=== PATIENT | male | born 1955 | race Caucasian/White ===

== ENCOUNTER 2023-09-25 19:04 | Inpatient (IN) | payer MEDICARE, OTHER ==
[2023-09-25] MEDS ORDERED: Nitroglycerin 0.4 MG TAB (25 Tab Bottle) SL PRN (20:26)
[2023-09-25] MEDS ORDERED: Acetaminophen 325 MG TAB PO PRN (20:33)
[2023-09-25 20:54] VITALS: BMI 23.6
[2023-09-25 21:02] LABS: PTT 26.3 sec (22.0-33.0); Prothrombin Time 10.8 sec (9.5-12.1)
[2023-09-25 21:23] LABS: Critical Call Chem Troponin I NUR.ES10 @2122; Troponin I 0.707 ng/mL (< 0.028)
[2023-09-25] MEDS: Enoxaparin 80 MG (0.8 mL) SYRINGE SC SCH (22:21)
[2023-09-25] MEDS: Nitroglycerin 2% Ointment 1 INCH/1 GM Packet TOP SCH (22:22)
[2023-09-25] MEDS: Sodium Chloride 0.9% 500 ML IV SCH (23:10)
[2023-09-25] MEDS: Sodium Chloride 0.9% 1,000 ML IV SCH (23:27)
[2023-09-26 00:10] LABS: Critical Call Chem Troponin I NUR.ES10 @0008; Troponin I 0.764 ng/mL (< 0.028)
[2023-09-26 04:02] LABS: #Basophils 0.01 10x3/uL (0.0-0.2); #Eosinphils 0.05 10x3/uL (0.0-0.5); #Monocytes 0.62 10x3/uL (0.0-1.1); #Neutrophils 6.87 10x3/uL (1.5-8.4); %Basophils 0.1 % (0.0-2.0); %Eosinophils 0.5 % (0.0-6.0); %Lymphocytes 17.9 % (18.0-47.0); %Monocytes 6.7 % (0.0-10.0); %Neutrophils 74.4 % (40.0-75.0); Anion Gap 10 mmol/L (10-20); BUN (Urea Nitrogen) 14 mg/dL (8.4-25.7); Calc. Creatinine Clearance 95 mL/min (70-130); Calcium 8.1 mg/dL (7.8-10.44); Carbon Dioxide 25 mmol/L (23-31); Cardiac Risk 2.8 (Less than 4.5); Chloride 108 mmol/L (98-107); Cholesterol 144 mg/dl (< 200 Desired); Estimated GFR 97; Glucose 81 mg/dL (80-115); HDL Cholesterol 51 mg/dL (>60 Neg Risk); Hematocrit 37.4 % (38.8-50.0); Hemoglobin 12.4 g/dL (13.5-17.5); LDL Cholesterol, Calculated 80 mg/dL; Mean Corpuscular HGB CONC 33.2 g/dL (32.0-36.0); Mean Corpuscular Hemoglobin 29.5 pg (27.0-33.0); Mean Corpuscular Volume 88.8 fL (81.2-95.1); Mean Platelet Volume 9.6 fL (7.4-10.4); Platelet Count 262 10x3/uL (150-450); Potassium 3.8 mmol/L (3.5-5.1); RBC Distribution Width 13.1 % (11.5-14.5); Red Blood Cell (RBC) Count 4.21 10x6/uL (4.32-5.72); Sodium 139 mmol/L (136-145); Triglycerides 66 mg/dL (Less than 150); White Blood Cell (WBC) Count 9.2 10x3/uL (3.5-10.5)
[2023-09-26] MEDS: Aspirin Chewable 81 MG TAB PO SCH (05:58)
[2023-09-26] MEDS ORDERED: Adenosine 6 mg (2 mL) VIAL ONE (07:06)
[2023-09-26] MEDS ORDERED: Nitroglycerin 50 MG/250 ML BOT 250 ML ONE (07:06)
[2023-09-26] MEDS ORDERED: Bivalirudin 250 MG VIAL ONE (07:06)
[2023-09-26] MEDS ORDERED: Verapamil 5 MG/2 ML VIAL ONE (07:06)
[2023-09-26] MEDS ORDERED: Lidocaine 1% (PF) 30 ML VIAL ONE (07:06)
[2023-09-26] MEDS ORDERED: Heparin 10,000 UNITS/ 10 ML VIAL ONE (07:12)
[2023-09-26] MEDS ORDERED: fentaNYL 50 mcg/mL 1 mL Vial ONE ×2 (07:48→09:13)
[2023-09-26] MEDS ORDERED: Midazolam HCl 2 mg/2 ml Vial ONE (07:48)
[2023-09-26] MEDS ORDERED: Atropine Sulfate 1 mg/1 ml Vial ONE (07:55)
[2023-09-26] MEDS ORDERED: TICAGRELOR 90 MG TABLET ONE (08:28)
[2023-09-26] MEDS ORDERED: Iopamidol 300 61% 100 ML VIAL FS ONE (09:55)
[2023-09-26] MEDS: Sodium Chloride 0.9% 1,000 ML IV SCH (10:26)
[2023-09-26] MEDS: TICAGRELOR 90 MG TABLET PO SCH (20:17)
[2023-09-26] MEDS: Atorvastatin Calcium 20 MG TAB PO SCH (20:18)
[2023-09-26] MEDS ORDERED: Enoxaparin 40 MG (0.4 mL) SYRINGE SC SCH (21:00)
[2023-09-26] MEDS ORDERED: Atorvastatin Calcium 20 MG TAB PO SCH (21:00)
[2023-09-27 03:38] LABS: #Basophils 0.02 10x3/uL (0.0-0.2); #Eosinphils 0.07 10x3/uL (0.0-0.5); #Monocytes 0.77 10x3/uL (0.0-1.1); #Neutrophils 8.13 10x3/uL (1.5-8.4); %Basophils 0.2 % (0.0-2.0); %Eosinophils 0.7 % (0.0-6.0); %Lymphocytes 12.7 % (18.0-47.0); %Monocytes 7.4 % (0.0-10.0); %Neutrophils 78.5 % (40.0-75.0); Hematocrit 39.9 % (38.8-50.0); Hemoglobin 13.3 g/dL (13.5-17.5); Mean Corpuscular HGB CONC 33.3 g/dL (32.0-36.0); Mean Corpuscular Hemoglobin 29.6 pg (27.0-33.0); Mean Corpuscular Volume 88.7 fL (81.2-95.1); Mean Platelet Volume 9.8 fL (7.4-10.4); Platelet Count 272 10x3/uL (150-450); RBC Distribution Width 12.9 % (11.5-14.5); White Blood Cell (WBC) Count 10.4 10x3/uL (3.5-10.5)
[2023-09-27 03:46] LABS: ALT (SGPT) 19 U/L (8-55); AST (SGOT) 29 U/L (5-34); Albumin 3.3 g/dL (3.4-4.8); Alkaline Phosphatase 63 U/L (40-110); Anion Gap 10 mmol/L (10-20); BUN (Urea Nitrogen) 11 mg/dL (8.4-25.7); Bilirubin, Total 0.5 mg/dL (0.2-1.2); Calc. Creatinine Clearance 86 mL/min (70-130); Calcium 8.4 mg/dL (7.8-10.44); Carbon Dioxide 26 mmol/L (23-31); Chloride 105 mmol/L (98-107); Estimated GFR 95; Globulin 2.5 g/dL (2.4-3.5); Glucose 95 mg/dL (80-115); Potassium 3.8 mmol/L (3.5-5.1); Protein, Total 5.8 g/dL (5.8-8.1); Sodium 137 mmol/L (136-145)
[2023-09-27 10:13] VITALS: BP 123/65; TEMP 98.4
== END 2023-09-27 11:47 | disposition home or self-care (01) | DRG 322 ==
LOC: CSHTELE 19:04
PROVIDERS: ADMIT Internal Medicine; ATTEND Internal Medicine
PROC: 027236Z Dilation of Coronary Artery, Three Arteries with Three Drug-eluting Intraluminal Devices, Percutaneous Approach (ICD-10-PCS; principal; 2023-09-26)
PROC: 4A023N7 Measurement of Cardiac Sampling and Pressure, Left Heart, Percutaneous Approach (ICD-10-PCS; 2023-09-26)
PROC: B2151ZZ Fluoroscopy of Left Heart using Low Osmolar Contrast (ICD-10-PCS; 2023-09-26)
PROC: B2111ZZ Fluoroscopy of Multiple Coronary Arteries using Low Osmolar Contrast (ICD-10-PCS; 2023-09-26)
DX: I21.4 Non-ST elevation (NSTEMI) myocardial infarction (principal); I25.110 Atherosclerotic heart disease of native coronary artery with unstable angina pectoris; I24.9 Acute ischemic heart disease, unspecified; E78.5 Hyperlipidemia, unspecified; Z88.1 Allergy status to other antibiotic agents; Z79.899 Other long term (current) drug therapy; Z90.79 Acquired absence of other genital organ(s); Z98.890 Other specified postprocedural states
CPT/HCPCS: 36415; 80048; 80053; 80061; 83735; 84484; 85025; 85610; 85730; 92928; 92929; 93005; 93010; 93306; 93458; 99152; 99153; C1725; C1769; C1874; C1887; C1894; C9600; C9601; J0153; J0461; J0583; J1644; J1650; J2001; J2250; J3010; J7030; J7050; Q9967